=== PATIENT | male | born 1980 | race Caucasian/White ===

== ENCOUNTER 2019-02-26 15:00 | Emergency (ER) | payer MEDICAID ==
[~2019-02-26] VITALS: Ht 182.8 cm; Wt 89.4 kg
[~2019-02-26 15:00] MED LIST: ANUSOL HC30 GM PO
== END 2019-02-26 15:56 | disposition home or self-care (01) ==
LOC: ED 15:00
DX: S01.111A Laceration without foreign body of right eyelid and periocular area, initial encounter (principal); Z79.899 Other long term (current) drug therapy; W08.XXXA Fall from other furniture, initial encounter; Y93.89 Activity, other specified; Y92.098 Other place in other non-institutional residence as the place of occurrence of the external cause; Y99.8 Other external cause status